=== PATIENT | female | born 1960 | race Caucasian/White ===

== ENCOUNTER 2018-03-20 08:24 | Outpatient (CLI) | payer OTHER | END 2018-03-20 08:33 | disposition home or self-care (01) | LOC: RAD 08:24 | DX: M54.2 Cervicalgia (principal) ==

== ENCOUNTER 2018-03-28 08:53 | Outpatient (CLI) | payer OTHER | END 2018-03-28 09:06 | disposition home or self-care (01) | LOC: MRI 08:53 | DX: G44.1 Vascular headache, not elsewhere classified (principal); G44.59 Other complicated headache syndrome | CPT/HCPCS: 70546 ==

== ENCOUNTER 2018-04-07 08:33 | Outpatient (CLI) | payer OTHER | END 2018-04-07 08:47 | disposition home or self-care (01) | LOC: MAMO-SONO 08:33 | DX: N60.11 Diffuse cystic mastopathy of right breast (principal); N60.12 Diffuse cystic mastopathy of left breast; Z12.31 Encounter for screening mammogram for malignant neoplasm of breast ==

== ENCOUNTER 2021-01-23 10:05 | Outpatient (CLI) | payer OTHER | END 2021-01-23 10:17 | disposition home or self-care (01) | LOC: MAMO-SONO 10:05 | PROVIDERS: ATTEND Family Medicine | DX: N60.12 Diffuse cystic mastopathy of left breast (principal); N60.11 Diffuse cystic mastopathy of right breast; Z12.31 Encounter for screening mammogram for malignant neoplasm of breast ==

== ENCOUNTER 2021-06-16 10:48 | Outpatient (CLI) | payer OTHER | END 2021-06-16 10:55 | disposition home or self-care (01) | LOC: RAD 10:48 | PROVIDERS: ATTEND Orthopaedic Surgery | DX: M17.0 Bilateral primary osteoarthritis of knee (principal) ==

== ENCOUNTER 2023-04-05 09:32 | Outpatient (CLI) | payer OTHER | END 2023-04-05 09:45 | disposition home or self-care (01) | LOC: MAMO-SONO 09:32 | DX: M60.11 Interstitial myositis, shoulder (principal); M43.6 Torticollis ==

== ENCOUNTER 2024-11-24 11:34 | Outpatient (CLI) | payer OTHER | END 2024-11-24 11:42 | disposition home or self-care (01) | LOC: MAMO-SONO 11:34 | PROVIDERS: ATTEND Family Medicine | DX: N63 Unspecified lump in breast (principal); N60.19 Diffuse cystic mastopathy of unspecified breast ==